=== PATIENT | female | born 1995 | race Hispanic/Latino ===

== ENCOUNTER 2018-01-21 21:10 | Emergency (ER) | payer OTHER ==
[2018-01-21 21:26] VITALS: TEMP 98; O2SAT 100
[2018-01-21] MEDS ORDERED: Sodium Chloride 0.9% 1,000 ML IV STA (21:54)
[2018-01-21 22:30] LABS: BASO # 0.1 K/uL (0.0-0.2); BASO % 1.2 % (0.0-2.0); EOS # 0.2 K/uL (0.0-0.7); EOS % 2.2 % (0.0-4.0); HEMOGLOBIN 12.5 g/dL (12.0-16.0); LYMPH # 3.1 K/uL (1.0-4.3); LYMPH % 39.8 % (20.0-40.0); MEAN CELL VOLUME 84.3 fl (81.0-99.0); MEAN CORPUSCULAR HEMOGLOBIN 28.9 pg (27.0-31.0); MEAN CORPUSCULAR HGB CONC 34.3 g/dL (33.0-37.0); MEAN PLATELET VOLUME 7.6 fl (7.2-11.7); MONO # 0.5 K/uL (0.0-0.8); MONO % 6.8 % (0.0-10.0); NEUT # 3.9 K/uL (1.8-7.0); NRBC % 0.1 % (0.0-0.0); RBC 4.31 Mil/uL (3.80-5.20); RED CELL DISTRIBUTION WIDTH 12.7 % (11.5-14.5); WHITE BLOOD COUNT 7.8 K/uL (4.8-10.8)
[2018-01-21 22:40] LABS: ALB/GLOB RATIO 1.4 (1.0-2.1); ALBUMIN 4.2 g/dL (3.5-5.0); ALT/SGPT 25 U/L (9-52); AST/SGOT 22 U/L (14-36); BLOOD UREA NITROGEN 10 mg/dl (7-17); CALCIUM 9.3 mg/dL (8.4-10.2); GFR AFRICAN-AMERICAN > 60; GFR NON-AFRICAN AMERICAN > 60
--- NOTE | 2018-01-21 22:51 | ED PDOC ---
HPI: Chest Pain History Per: Patient <Jaime Iraheta - Last Filed: 01/22/18 02:11> <Kevin Watters - Last Filed: 01/22/18 19:21> Time Seen by Provider: 01/21/18 21:30 Chief Complaint (Nursing): Chest Pain Additional Complaint(s): 23 y/o female w/ hx of HLD, Mitral regurge, herniated disk, and anxiety presents to ED with complaints of intermittent Chest tightness for the past 3-4 days associated with shortness of breath. Localizes pain to left anterior chest wall and describes as pressure-like w/o radiation and not alleviated by Advil. States she has been painting and lifting heavy boxes for the past 2 weeks. Traveled from [place] 3 weeks ago but reports feeling fine after the trip. Denies any association with physical exertion, anxiety, LE edema or calf pain. Not on any control. Also reports feeling nauseous for the past week with no episodes of vomiting/diarrhea/fever. Endorses mild sporadic abdominal pain but denies pain at this time. Denies recent illness or sick contacts. (Jaime Iraheta) Supervising Attending Note - Supervising Attending Note The Documented history was done by the: Physician Business Intelligence Developer The documented physical exam was done by the: Physician Business Intelligence Developer The documented procedures were done by the: Physician Business Intelligence Developer - Attestation: I have personally seen and examined this patient.: Yes I have fully participated in the care of the patient.: Yes I have reviewed all pertinent clinical information: Yes <Kevin Watters - Last Filed: 01/22/18 19:21> Past Medical History - Family History Family History: States: No Known Family Hx <Jaime Iraheta - Last Filed: 01/22/18 02:11> <Kevin Watters - Last Filed: 01/22/18 19:21> Vital Signs: Last Vital Signs Temp 98.0 F 01/21/18 21:25 Pulse 76 01/22/18 02:17 Resp 18 01/22/18 02:17 BP 119/65 01/22/18 02:17 Pulse Ox 100 01/22/18 02:17 - Allergies Allergies/Adverse Reactions: Allergies Allergy/AdvReac Type Severity Reaction Status Date / Time No Known Allergies Allergy Verified 01/21/18 21:25 Wells Criteria for PE - Wells Criteria for Pulmonary Embolism Clinical Signs and Symptoms of DVT: No P.E is #1 Diagnosis, or Equally Likely: No Heart Rate >100: No Immobilization at least 3 days;Surgery previous 4 weeks: No Previous, objectively diagnosed PE or DVT: No Hemoptysis: No Malignancy w/treatment within 6 months, or palliative: No Total Score: 0 <Jaime Iraheta - Last Filed: 01/22/18 02:11> Review of Systems Constitutional: Negative for: Fever Cardiovascular: Positive for: Chest Pain Respiratory: Positive for: Shortness of Breath. Negative for: Cough Gastrointestinal: Positive for: Nausea. Negative for: Vomiting, Abdominal Pain <Jaime Iraheta - Last Filed: 01/22/18 02:11> Physical Exam - Physical Exam Appears: Positive for: Well, No Acute Distress Skin: Positive for: Normal Color Cardiovascular/Chest: Positive for: Regular Rate, Rhythm. Negative for: Murmur Respiratory: Positive for: Normal Breath Sounds. Negative for: Accessory Muscle Use, Crackles, Wheezing Gastrointestinal/Abdominal: Positive for: Bowel Sounds, Soft. Negative for: Tenderness, Distended Extremity: Negative for: Tenderness, Pedal Edema, Calf Tenderness, Swelling Neurologic/Psych: Positive for: Alert <Jaime Iraheta - Last Filed: 01/22/18 02:11> - Laboratory Results Result Diagrams: 01/21/18 22:23 01/21/18 22:23 - ECG O2 Sat by Pulse Oximetry: 100 <Jaime Iraheta - Last Filed: 01/22/18 02:11> - Laboratory Results Result Diagrams: 01/21/18 22:23 01/21/18 22:23 <Kevin Watters - Last Filed: 01/22/18 19:21> Medical Decision Making <Jaime Iraheta - Last Filed: 01/22/18 02:11> <Kevin Watters - Last Filed: 01/22/18 19:21> Medical Decision Makin23 y/o female presents to ED with complaints of intermittent chest tightness associated with SOB, Nausea, and sporadic abdominal pain. Plan: CBC, CMP, Urine , D-dimer, IV torodol 10mg, Chest portable Reassessment: Pt seen comfortable. No complaints. D-Dimer elevated. Will get CT Angio. Discussed results and plan with patient. Pt verbalized understanding. CT Angio: no pulmonary embolism. Discharge home. ER precautions given. (Jaime Iraheta) Disposition - Patient ED Disposition Is Patient to be Admitted: No - Disposition Disposition: Routine/Home Disposition Time: 02:11 <Jaime Iraheta - Last Filed: 01/22/18 02:11> <Kevin Watters - Last Filed: 01/22/18 19:21> - Clinical Impression Clinical Impression: Atypical chest pain - Disposition Condition: STABLE Additional Instructions: F/U with PMD in 1 week Instructions: Chest Pain That Is Not Caused by the Heart (DC) Forms: [facility] (German)
[2018-01-22] MEDS ORDERED: Iodixanol 320 MG/ML 100 ML BOTTLE IV ONE (00:41)
[2018-01-22] MEDS ORDERED: Sodium Chloride 0.9% 50 ML IV ONE (00:42)
[2018-01-22 02:18] VITALS: BP 119/65; PULSE 76; RESP 18
--- NOTE | 2018-01-22 07:38 | CT ---
PROCEDURE: CT Chest with contrast (Pulmonary Angiogram) HISTORY: chest pain COMPARISON: None available. TECHNIQUE: Axial computed tomography images were obtained of the chest in the pulmonary arterial phase of enhancement. Coronal and sagittal reformatted images were created and reviewed. Intravenous contrast dose: Radiation dose: Total exam DLP = mGy-cm. This CT exam was performed using one or more of the following dose reduction techniques: Automated exposure control, adjustment of the mA and/or kV according to patient size, and/or use of iterative reconstruction technique. FINDINGS: PULMONARY ARTERIES: 4 millimeter nodule in the right lower lobe (5:72), recommend 6 month follow-up. No pulmonary embolism. AORTA: No acute findings. No thoracic aortic aneurysm. LUNGS: Unremarkable. No nodule, mass or pulmonary consolidation. PLEURAL SPACES: Unremarkable. No effusion or pneuomothorax. HEART: Unremarkable. No cardiomegaly. No significant pericardial effusion. LYMPH NODES: No lymphadenopathy. BONES, CHEST WALL: Unremarkable. No fracture or destructive lesion OTHER FINDINGS: Unremarkable. IMPRESSION: 4 millimeter nodule in the right lower lobe (5:72), recommend 6 month follow-up. No pulmonary emboli
--- NOTE | 2018-01-22 07:41 | RAD ---
HISTORY: dyspnea COMPARISON: No prior. FINDINGS: LUNGS: No active pulmonary disease. PLEURA: No significant pleural effusion identified, no pneumothorax apparent. CARDIOVASCULAR: Normal. OSSEOUS STRUCTURES: No significant abnormalities. VISUALIZED UPPER ABDOMEN: Normal. OTHER FINDINGS: None. IMPRESSION: No active disease.
--- NOTE | 2018-01-22 10:08 | CARD ---
APPROVED REPORT EKG Measurement Heart [id number] <Conclusion> Normal sinus rhythm with sinus arrhythmia Normal ECG
== END 2018-01-22 02:21 | disposition home or self-care (01) ==
LOC: H.ER 21:10
DX: R07.89 Other chest pain (principal); F41.9 Anxiety disorder, unspecified; I34.0 Nonrheumatic mitral (valve) insufficiency
CPT/HCPCS: 71045; 71275; 80053; 81025; 84484; 85025; 85378; 93005; 96361; 96374; 99284; J1885; J7030; Q9967

== ENCOUNTER 2018-06-19 20:13 | Emergency (ER) | payer OTHER ==
[2018-06-19 20:26] VITALS: RESP 18
[2018-06-19] MEDS ORDERED: Alum-Mag Hydrox-Simethicone Susp (30 mL) PO STA (21:03)
[2018-06-19] MEDS ORDERED: Sodium Chloride 0.9% 1,000 ML IV STA (21:03)
[2018-06-19] MEDS ORDERED: Alum-Mag Hydrox-Simethicone Susp (30 mL) ONE (21:12)
[2018-06-19 21:36] LABS: BASO # 0.1 K/uL (0.0-0.2); EOS # 0.1 K/uL (0.0-0.7); EOS % 2.3 % (0.0-4.0); HEMOGLOBIN 12.1 g/dL (12.0-16.0); LYMPH # 1.8 K/uL (1.0-4.3); MEAN CELL VOLUME 83.7 fl (81.0-99.0); MEAN CORPUSCULAR HEMOGLOBIN 27.2 pg (27.0-31.0); MEAN CORPUSCULAR HGB CONC 32.5 g/dL (33.0-37.0); MEAN PLATELET VOLUME 7.7 fl (7.2-11.7); MONO # 0.5 K/uL (0.0-0.8); MONO % 7.8 % (0.0-10.0); NEUT # 3.6 K/uL (1.8-7.0); NEUT % 58.9 % (50.0-75.0); RBC 4.44 Mil/uL (3.80-5.20); RED CELL DISTRIBUTION WIDTH 13.1 % (11.5-14.5)
--- NOTE | 2018-06-19 21:40 | ED PDOC ---
HPI: Abdomen Time Seen by Provider: 06/19/18 20:33 Chief Complaint (Nursing): GI Problem Chief Complaint (Provider): Abdominal pain History Per: Patient History/Exam Limitations: no limitations Onset/Duration Of Symptoms: Days (10) Outside of [place] travel?: Yes Other Location:: [facility], [facility] [place] Current Symptoms Are (Timing): Still Present Context: Travel, Food Quality Of Discomfort: Sharp, Stabbing Associated Symptoms: Vomiting, Diarrhea, Back Pain Additional History Per: Patient Additional Complaint(s): 23yo female, with history of high cholesterol, reflux, comes to ER with complaints of epigastric abdominal pain and chest pain x 10 days, which has been worsening since onset. Patient states the pain feels like a stabbing pain and today, she was doubled over in pain, prompting ER visit. Patient states she was traveling in [place] and recently returned (48 hours ago); patient states while traveling, she ate the local cuisine. Patient also reports intermittent episodes of vomiting, and states the pain is radiating to her back and is worse on her left side. She also reports decreased appetite. Patient had diarrhea x 3 days but states it has improved with taking immodium; she denies any black or bloody stools. Patient reports a tactile fever as well. She denies any urinary symptoms and offers no additional complaints. PMD: Dr. Whitaker Past Medical History Reviewed: Historical Data, Nursing Documentation, Vital Signs Vital Signs: Last Vital Signs Temp 98.6 F 06/19/18 20:22 Pulse 88 06/19/18 20:22 Resp 18 06/19/18 20:22 BP 115/72 06/19/18 20:22 Pulse Ox 99 06/19/18 20:22 - Medical History PMH: Hyperlipidemia, Hypothyroidism - Surgical History Surgical History: No Surg Hx - Family History Family History: States: Diabetes, Hypertension, Other Other Family History: high cholesterol - Social History Current smoker - smoking cessation education provided: No Alcohol: Occasional (once every 6 months) Drugs: Denies - Allergies Allergies/Adverse Reactions: Allergies Allergy/AdvReac Type Severity Reaction Status Date / Time No Known Allergies Allergy Verified 01/21/18 21:25 Review of Systems ROS Statement: Except As Marked, All Systems Reviewed And Found Negative (per HPI) Constitutional: Positive for: Fever Cardiovascular: Positive for: Chest Pain Gastrointestinal: Positive for: Vomiting, Abdominal Pain, Diarrhea. Negative for: Melena Genitourinary Female: Negative for: Dysuria, Frequency, Hematuria Musculoskeletal: Positive for: Back Pain Physical Exam - Reviewed Nursing Documentation Reviewed: Yes Vital Signs Reviewed: Yes - Physical Exam Appears: Positive for: In Acute Distress (mil dpainful distress) Head Exam: Positive for: ATRAUMATIC, NORMAL INSPECTION, NORMOCEPHALIC Skin: Positive for: Normal Color Eye Exam: Positive for: Normal appearance Neck: Positive for: Normal, Supple Cardiovascular/Chest: Positive for: Regular Rate, Rhythm, Chest Non Tender. Negative for: Murmur Respiratory: Positive for: Normal Breath Sounds Gastrointestinal/Abdominal: Positive for: Soft, Tenderness (epigastric, left upper and right upper quadrant tenderness; (-) Mna's sign; (-) McBurney's point tenderness). Negative for: Mass, Distended, Guarding, Rebound Back: Positive for: Normal Inspection. Negative for: L CVA Tenderness, R CVA Tenderness Extremity: Positive for: Normal ROM Neurologic/Psych: Positive for: Alert, Oriented. Negative for: Motor/Sensory Deficits - ECG ECG: Positive for: Interpreted By Me, Viewed By Me ECG Rhythm: Positive for: Normal QRS, Normal ST Segment, Sinus Rhythm Rate: 83 O2 Sat by Pulse Oximetry: 99 (RA) Pulse Ox Interpretation: Normal Medical Decision Making Medical Decision Making: Impression: Epigastric abdominal pain Differential: Including but not limited to gastritis, reflux, pancreatitis, hepatitis, cholecystitis, cholelithiasis Plan: -- EKG -- Labs -- IV Fluids -- Zofran 4mg IV -- Maalox 30ml PO -- Pepcid 40mg PO -- Lidocaine 10ml PO Scribe Attestation: Documented by Jacki Amaya, acting as a scribe for Marilu Ledezma MD. Provider Scribe Attestation: All medical record entries made by the Scribe were at my direction and personally dictated by me. I have reviewed the chart and agree that the record accurately reflects my personal performance of the history, physical exam, medical decision making, and the department course for this patient. I have also personally directed, reviewed, and agree with the discharge instructions and disposition. Disposition - Disposition
[2018-06-19 21:47] LABS: ALB/GLOB RATIO 1.3 (1.0-2.1); ALBUMIN 4.4 g/dL (3.5-5.0); ALT/SGPT 24 U/L (9-52); AST/SGOT 25 U/L (14-36); BLOOD UREA NITROGEN 9 mg/dl (7-17); CALCIUM 9.3 mg/dL (8.4-10.2); GFR NON-AFRICAN AMERICAN > 60; LIPASE 199 U/L (23-300)
--- NOTE | 2018-06-20 01:16 | ED PDOC ---
- Laboratory Results Result Diagrams: 06/19/18 21:30 06/19/18 21:30 - ECG O2 Sat by Pulse Oximetry: 99 (RA) Medical Decision Making Medical Decision Makin:00 Patient endorsed to this provider from Dr. Ledezma. Pending ultrasound. 00:53 US abdomen Findings: The pancreas is limited in visualization secondary to overlying bowel gas, but appears grossly unremarkable. The liver demonstrates uniform echotexture and echogenicity, with no mass lesions. The gallbladder is unremarkable. The common bile duct measures 4 mm and is within normal limits. The right kidney measures 9.8 cm in length. There is no evidence of hydronephrosis or nephrolithiasis. There is no ascites. Impression: Unremarkable ultrasound examination of the right upper quadrant. 01:26 Upon reevaluation, patient states pain is radiating to under the left breast under the rib cage. Will order a chest X-ray to r/o lung etiology. Patient states pain is no better or worse at this point. Will reevaluate with X-ray results. 02:11 Chest X-ray is unremarkable. Patient refusing any additional medications. Patient to be discharged home. Patient advised to take Tylenol for pain and will follow up with primary doctor. Scribe Attestation: Documented by Gonzalo Shook acting as a scribe for Milla Cummings MD. Provider Scribe Attestation: All medical record entries made by the Scribe were at my direction and personally dictated by me. I have reviewed the chart and agree that the record accurately reflects my personal performance of the history, physical exam, medical decision making, and the department course for this patient. I have also personally directed, reviewed, and agree with the discharge instructions and disposition. Disposition - Clinical Impression Clinical Impression: Abdominal pain, Gastritis - POA Present On Arrival: None - Disposition Disposition: Routine/Home Disposition Time: 02:11 Condition: STABLE Additional Instructions: Take Tylenol as needed for pain. Follow up with primary medical doctor. Return to the emergency department if you develop worsened symptoms or new symptoms. Instructions: Gastritis (DC) Forms: [facility] (Panamanian) Print Language: VIETNAMESE
[2018-06-20 02:22] VITALS: BP 107/68; PULSE 64; TEMP 98.8; O2SAT 100
--- NOTE | 2018-06-20 10:05 | US ---
Date of service: 06/19/2018 HISTORY: abdominal pain COMPARISON: None. TECHNIQUE: Sonographic evaluation of the right upper quadrant of the abdomen. FINDINGS: LIVER: Measures 13.9 cm in length. Normal echogenicity of the liver parenchyma. No mass. No intrahepatic bile duct dilatation. GALLBLADDER: Unremarkable. No gallstones. No mural thickening. No pericholecystic fluid. Negative sonographic Man sign. COMMON BILE DUCT: Measures 4 mm. No stones. No dilatation. PANCREAS: Limited evaluation due to overlying bowel gas. No gross abnormality. RIGHT KIDNEY: Measures 9.8 cm in length. Normal echogenicity. No calculus, mass, or hydronephrosis. AORTA: No aneurysmal dilatation. IVC: Unremarkable. OTHER FINDINGS: None . IMPRESSION: Unremarkable examination. Limited evaluation of pancreas. The preliminary findings for this examination were reported by [facility] at 12:53 a.m. on 06/20/2018. There is concurrence of this report with the preliminary findings.
--- NOTE | 2018-06-20 11:26 | RAD ---
Date of service: 06/20/2018 HISTORY: left chest wall pain COMPARISON: 01/21/2018 TECHNIQUE: Chest PA and lateral FINDINGS: LUNGS: No active pulmonary disease. PLEURA: No significant pleural effusion identified. No pneumothorax apparent. CARDIOVASCULAR: No aortic atherosclerotic calcification present. Normal cardiac size. No pulmonary vascular congestion. OSSEOUS STRUCTURES: No significant abnormalities. VISUALIZED UPPER ABDOMEN: Normal. OTHER FINDINGS: None. IMPRESSION: No active disease.
--- NOTE | 2018-06-20 15:15 | CARD ---
APPROVED REPORT Date of service: 06/19/2018 EKG Measurement Heart [id number] <Conclusion> Normal sinus rhythm Normal ECG
== END 2018-06-20 02:20 | disposition home or self-care (01) ==
LOC: H.ER 20:13
DX: R10.13 Epigastric pain (principal); K29.70 Gastritis, unspecified, without bleeding; N64.4 Mastodynia; R07.89 Other chest pain; E03.9 Hypothyroidism, unspecified; E78.5 Hyperlipidemia, unspecified
CPT/HCPCS: 71046; 76705; 80053; 81025; 83605; 83615; 83690; 85025; 93005; 96374; 99284; J2405; J7030